=== PATIENT | male | born 1960 | race Two or more races ===

== ENCOUNTER → 2018-02-19 | Outpatient (CLI) | payer OTHER ==
--- NOTE | 2018-02-19 10:04 | KCIC ---
Complete abdominal ultrasound 02/19/2018 INDICATION: Generalized abdominal pain COMPARISON STUDY: None FINDINGS: Ultrasound evaluation of the abdomen was performed. Static images are submitted to PACS. The pancreas is poorly visualized secondary to overlying gas filled bowel. Visualized aorta and IVC are grossly unremarkable. The liver is partially visualized. Portions of the liver obscured by overlying ribs and shadowing. The liver appears to be Hepatic echotexture appears mildly coarsened. Portal venous flow appears to be in the normal direction. Multiple hepatic masses are seen. Masses have a predominantly hypoechoic appearance with some central increase in echogenicity. A larger mass appears to be present in the posterior liver which is partially visualized. This appears to measure approximately 5.5 cm in diameter. Smaller lesion is seen in the more central right lobe of the liver measuring 3 cm in diameter. Satellite nodules to the 3 cm nodular noted measuring approximately 1.3 and 1.4 cm . Other nonvisualized mass is possible based on the limitations of study. The gallbladder demonstrates no evidence of wall thickening, stones, or sludge. Common bile duct measures 4 mm in diameter which is normal. The right kidney is unremarkable in appearance measuring 9.8 cm in length. The left kidney is unremarkable in appearance measuring 10.6 cm in length. The spleen is poorly visualized but normal in size measuring 8.7 cm. IMPRESSION: Multiple hepatic masses as described. Largest mass is somewhat poorly visualized but measures up to 5.5 cm in diameter. Malignant etiology including metastasis is possible. Recommend further characterization with hepatic protocol MRI versus CT. Electronically signed by: Dwight Cabrera MD (02/19/2018 10:00 AM) [id number]
== END | disposition home or self-care (01) ==
LOC: KCIC US 08:03
PROVIDERS: ATTEND Family Medicine
DX: R16.0 Hepatomegaly, not elsewhere classified (principal)
CPT/HCPCS: 76700

== ENCOUNTER → 2018-03-07 | Outpatient (CLI) | payer OTHER ==
[~2018-03-07] MED LIST: BARIUM SULFATE 340 GM SUSPENSION. PO ONE; BARIUM SULFATE 60% 355 ML SUSP PO ONE; SIMETHICONE/SOD BICARB/CITRIC ACID PACKET. PO ONE
--- NOTE | 2018-03-07 13:50 | RAD ---
Clinical indications: Dysphagia, oral pharyngeal phase. Food sticking. Difficulty swallowing.. Technique: A fluoroscopic esophagram was performed with thin and thick liquid barium and effervescent granules in the upright and recumbent positions. A 13 mm barium pill was administered. Total fluoroscopic time: 2.6 minutes. Total fluoroscopy images: 1123. Findings: Swallowing appeared normal and no laryngeal penetration or aspiration was seen. There was no delay in initiation of the swallow. The primary peristaltic wave stopped at the upper thoracic esophagus and there was dilatation of the thoracic esophagus distal to this point namely the cervical thoracic junction. This was consistent with achalasia. There was a bird beak appearance of the distal esophagus at the GE junction which may also be seen with achalasia. 13 mm barium pill stopped here. The contrast bolus cleared from the distal esophagus with subsequent swallows of water in the upright position; however, the contrast bolus did not completely clear in the recumbent position and the 13 mm barium pill moved proximally from the GE junction into the distal esophagus in this position. No hiatal hernia or gastroesophageal reflux was evident even after Valsalva maneuvers and water siphon test in the recumbent position. No esophageal mucosal fold thickening or irregularity or ulceration was seen radiographically. No gastric outlet obstruction was seen. Impression: Achalasia with a bird beak narrowing of the distal esophagus at the GE junction. The 13 mm barium pill stopped here and did not pass through. Electronically signed by: Isaac Riggs MD (03/07/2018 1:47 PM) [facility]
== END | disposition home or self-care (01) ==
LOC: RAD 09:55
PROVIDERS: ATTEND Internal Medicine Gastroenterology
DX: K22.0 Achalasia of cardia (principal); K22.2 Esophageal obstruction
CPT/HCPCS: 74220

== ENCOUNTER → 2018-03-13 | Outpatient (CLI) | payer OTHER ==
[~2018-03-13] MED LIST changes: -BARIUM SULFATE 340 GM SUSPENSION. PO ONE; -BARIUM SULFATE 60% 355 ML SUSP PO ONE; +GADOBUTROL 7.5 MMOL/7.5 ML VIAL IV ONE; -SIMETHICONE/SOD BICARB/CITRIC ACID PACKET. PO ONE
--- NOTE | 2018-03-13 17:11 | RAD ---
ABDOMEN WO/W CONTRAST Clinical Indication: ABNORMAL ULTRASOUND, LIVER MASS, ABDOMINAL PAIN X 2 MONTHS, NO SX HX, NO PREVIOUS HX OF CANCER Comparison: Complete abdominal ultrasound February 19, 2018. TECHNIQUE: Routine multiplanar multiple pulse sequence images of the abdomen are obtained before and after 7.5 cc Gadavist IV contrast. Findings: The dominant liver mass is in segment 7 and measures 5.9 x 5.3 cm. There is a 1.9 cm round mass in segment 8. There is a small satellite mass anterior to the dominant mass. There is a mass in segment 3/4B measuring 2.6 x 3.8 cm. There are multiple other smaller enhancing masses throughout the liver. There number is estimated at 15-20. All of the masses are heterogeneously T2 hyperintense, demonstrate restricted diffusion and on postcontrast images demonstrate arterial phase rim enhancement. The smaller masses are hyperenhancing on later phases. The dominant mass is centrally not enhancing although there are enhancing septations. Similar in appearance to the liver masses there is a ill-defined T2 hyperintense mass at the splenic hilum and pancreas tail measuring approximately 4.1 x 4.8 cm. The mass demonstrates restricted diffusion and irregular peripheral enhancement. Distal esophagus is mildly dilated and fluid-filled. Distally there is a beaked appearance, better demonstrated on prior esophagram. No definite mass at the gastroesophageal junction is seen. The pancreas head and body are homogeneous. Kidneys enhance symmetrically, no hydronephrosis. The adrenal glands are normal. Gallbladder is normal. No evidence of bowel obstruction. Ectatic duct and the common bile duct are normal caliber. IMPRESSION: 1. Ill-defined partially cystic and solid enhancing mass of the pancreas tail/splenic hilum. Primary consideration is pancreatic cystic neoplasm. Cannot exclude splenic invasion. 2. There are numerous hepatic masses highly suspicious for metastases. 3. Achalasia of the distal esophagus. Electronically signed by: Elgin Estrada MD (03/13/2018 5:08 PM) [id number]
== END | disposition home or self-care (01) ==
LOC: MRI 14:43
PROVIDERS: ATTEND Internal Medicine Gastroenterology
DX: K86.89 Other specified diseases of pancreas (principal); R16.0 Hepatomegaly, not elsewhere classified; K22.0 Achalasia of cardia
CPT/HCPCS: 74183; A9585